=== PATIENT | male | born 1985 | race African-American/Black ===

== ENCOUNTER 2017-11-05 01:53 | Emergency (ER) | payer SELFPAY ==
[~2017-11-05] VITALS: Ht 180.3 cm; Wt 81.6 kg
[2017-11-05 01:58] VITALS: BP 139/102
[2017-11-05] MEDS ORDERED: HYDROcodone-ACET 5/325MG TAB PO ONE (04:45)
== END 2017-11-05 05:46 | disposition home or self-care (01) ==
LOC: ER 02:01
DX: S00.03XA Contusion of scalp, initial encounter (principal); Y08.89XA Assault by other specified means, initial encounter; Y93.89 Activity, other specified; Y99.8 Other external cause status; Y92.89 Other specified places as the place of occurrence of the external cause
CPT/HCPCS: 70450